=== PATIENT | female | born 1985 | race Caucasian/White ===

== ENCOUNTER 2022-01-21 13:40 | Emergency (ER) | payer BC ==
[~2022-01-21] VITALS: Ht 165.1 cm; Wt 54.4 kg
--- NOTE | 2022-01-21 13:50 | NUR ---
Pt walked to the ER c/o left shoulder pain , radiating towards the neck. Pt reports pain as trobing and aching /. Pt reports a shoulder injury. seen the pt.
[2022-01-21] MEDS ORDERED: GABA300C PO (13:53)
[2022-01-21] MEDS ORDERED: IBUP-1955 PO (14:32)
[2022-01-21] MEDS ORDERED: IBUPROFEN 600 MG TABLET ONE (14:36)
[2022-01-21] MEDS ORDERED: IBUPROFEN 600 MG TABLET PO ONE (14:45)
--- NOTE | 2022-01-21 15:03 | NUR ---
Patient discharged to home in stable condition. Written and verbal after care instructions given. Patient verbalizes understanding of instructions. Stressed follow up or return to ER for worsening s/s.
== END 2022-01-21 15:03 | disposition home or self-care (01) ==
LOC: ER 13:40
DX: S52.125A Nondisplaced fracture of head of left radius, initial encounter for closed fracture (principal); S09.90XA Unspecified injury of head, initial encounter; V00.842A Pedestrian on standing electric scooter colliding with stationary object, initial encounter; Y93.89 Activity, other specified; Y92.480 Sidewalk as the place of occurrence of the external cause; M25.512 Pain in left shoulder; F10.20 Alcohol dependence, uncomplicated
CPT/HCPCS: 73030; 73080; 73100; A4663